=== PATIENT | female | born 1950 ===

== ENCOUNTER 2017-03-20 06:06 | Emergency (ER) | payer OTHER ==
[2017-03-20 06:07] VITALS: BMI 19.1
--- NOTE | 2017-03-20 06:15 | C.PDOC ---
History Of Present Illness Patient presents to the ED for evaluation of itching which began around 2 days ago. Patient reports a diffuse urticarial rash mostly concentrated around her neck and arms. She denies fever, chills, shortness of breath, cough, throat swelling sensation, nausea, vomiting. Time Seen by Provider: 03/20/17 06:14 Chief Complaint (Nursing): Allergic Reaction History Per: Patient History/Exam Limitations: no limitations Onset/Duration Of Symptoms: Days (2) Current Symptoms Are (Timing): Still Present Possible Cause: Unknown Associated Symptoms: Skin Rash, Itching. denies: Trouble Swallowing Home/EMS Treatment: None Severity: Mild Pain Scale Rating Of: 3 Recent travel outside of the [place]: No Additional History Per: Patient Past Medical History Reviewed: Historical Data, Nursing Documentation, Vital Signs Vital Signs: Last Vital Signs Temp 97.9 F 03/20/17 06:13 Pulse 66 03/20/17 06:13 Resp 18 03/20/17 06:13 BP 147/89 03/20/17 06:13 Pulse Ox 100 03/20/17 06:35 - Medical History PMH: No Chronic Diseases Surgical History: No Surg Hx Family History: States: Unknown Family Hx - Social History Hx Tobacco Use: No Hx Alcohol Use: No Hx Substance Use: No - Immunization History Hx Tetanus Toxoid Vaccination: Yes Hx Influenza Vaccination: Yes Hx Pneumococcal Vaccination: Yes Review Of Systems ENT: Negative for: Mouth Swelling, Throat Swelling Cardiovascular: Negative for: Chest Pain, Palpitations Respiratory: Negative for: Cough, Shortness of Breath, Wheezing Gastrointestinal: Negative for: Nausea, Vomiting Skin: Positive for: Rash (diffuse, urticarial around neck and arms ). Negative for: Lesions, Jaundice, Bruising Neurological: Negative for: Weakness, Numbness Physical Exam - Physical Exam Appears: Non-toxic, No Acute Distress Skin: Warm, Dry, Rash (urticarial around lateral neck and bilateral upper extremities. unknown etiology) Head: Normacephalic Eye(s): bilateral: Normal Inspection Oral Mucosa: Moist Tongue: No Swelling Lips: No Swelling Throat: No Erythema, No Exudate, No Drooling, Other (+clear oropharynx, tolerating own secretions ) Neck: Supple Chest: Symmetrical, No Deformity, No Tenderness Cardiovascular: Rhythm Regular, No Murmur Respiratory: No Rales, No Rhonchi, No Wheezing, Other (+speaking complete sentences) Gastrointestinal/Abdominal: Soft, No Tenderness Extremity: Normal ROM, Capillary Refill (less than 2 seconds ) Extremity: Bilateral: Atraumatic Neurological/Psych: Oriented x3 Gait: Steady ED Course And Treatment O2 Sat by Pulse Oximetry: 100 (on RA) Pulse Ox Interpretation: Normal Progress Note: Patient received Benadryl IV, Pepcid IV, Solu-medrol IV, and IVF. Disposition Counseled Patient/Family Regarding: Studies Performed, Diagnosis - Disposition Referrals: Non [facility] Provider, [Primary Care Provider] - Disposition Time: 06:15 Condition: UNKNOWN Forms: [employer] (Spanish) - Clinical Impression Clinical Impression: Allergic urticaria - Scribe Statement The provider has reviewed the documentation as recorded by the Scribe (Deb Alvarez) Provider Attestation: All medical record entries made by the Scribe were at my direction and personally dictated by me. I have reviewed the chart and agree that the record accurately reflects my personal performance of the history, physical exam, medical decision making, and the department course for this patient. I have also personally directed, reviewed, and agree with the discharge instructions and disposition.
[2017-03-20] MEDS ORDERED: DiphenhydrAMINE 50 mg/ml Inj IVP STA (06:18)
[2017-03-20] MEDS ORDERED: Sodium Chloride 0.9% 1,000 ML IV ONE (06:18)
[2017-03-20 06:19] VITALS: RESP 18; O2SAT 100
[2017-03-20] MEDS ORDERED: Sodium Chloride 0.9% 1,000 ML ONE (06:29)
[2017-03-20] MEDS ORDERED: DiphenhydrAMINE 50 mg/ml Inj ONE (06:29)
[2017-03-20 07:38] VITALS: TEMP 97.7
[2017-03-20 07:52] VITALS: BP 140/90; PULSE 69
== END 2017-03-20 07:52 | disposition home or self-care (01) ==
LOC: C.ER 06:06 → SUPCPDRO 06:06 → C.ER 07:52
DX: L50.0 Allergic urticaria (principal)
CPT/HCPCS: 96374; 96375; 99284; J1200; J2930; J7040

== ENCOUNTER 2017-03-29 05:55 | Emergency (ER) | payer OTHER ==
[2017-03-29 05:56] VITALS: BMI 19.1
[2017-03-29 06:10] VITALS: RESP 18
--- NOTE | 2017-03-29 07:19 | C.PDOC ---
History Of Present Illness 66 year old female presents to ED with complaints of itchy rash to body. She reports she was seen here last week and treated, the rash had improved and then returned yesterday. She states noticed after she had chocolate ice cream, but has had it before. Denies any SOB, throat swelling or difficulty swallowing. Skin: maculopapular rash to extremities and upper chest wall, no facial involvement Time Seen by Provider: 03/29/17 07:08 Chief Complaint (Nursing): Allergic Reaction History Per: Patient History/Exam Limitations: no limitations Onset/Duration Of Symptoms: Days Current Symptoms Are (Timing): Still Present Past Medical History Reviewed: Historical Data, Nursing Documentation, Vital Signs Vital Signs: Last Vital Signs Temp 97.3 F L 03/29/17 07:46 Pulse 58 L 03/29/17 07:46 Resp 18 03/29/17 07:46 BP 145/90 03/29/17 07:46 Pulse Ox 99 03/29/17 07:48 Family History: States: No Known Family Hx - Social History Hx Tobacco Use: No Hx Alcohol Use: No Hx Substance Use: No - Immunization History Hx Tetanus Toxoid Vaccination: Yes Hx Influenza Vaccination: Yes Hx Pneumococcal Vaccination: Yes Review Of Systems Except As Marked, All Systems Reviewed And Found Negative. Constitutional: Negative for: Fever ENT: Negative for: Throat Swelling Skin: Positive for: Rash (Itchy rash to body ) Physical Exam - Physical Exam Appears: Non-toxic, No Acute Distress Skin: Warm, Dry, Rash (Maculopapular rash to extremities and upper chest wall. No facial involvement. ) Head: Atraumatic, Normacephalic Eye(s): bilateral: Normal Inspection, PERRL, EOMI Nose: Normal Oral Mucosa: Moist Tongue: Normal Appearing, No Swelling Lips: Normal Appearing, No Swelling Throat: Normal, No Erythema, No Exudate, No Drooling Neck: Normal ROM Chest: Symmetrical, No Tenderness Cardiovascular: Rhythm Regular, No Murmur Respiratory: Normal Breath Sounds, No Rales, No Rhonchi, No Wheezing Extremity: Normal ROM, No Swelling Neurological/Psych: Oriented x3, Normal Speech Gait: Steady ED Course And Treatment O2 Sat by Pulse Oximetry: 99 (RA) Pulse Ox Interpretation: Normal Medical Decision Making Medical Decision Makin66 year old female with urticarial rash. Prior record reviewed similar presentation, treated with IV Solumedrol pepcid and benadryl. Today patient appears in no acute distress. Rash is scattered to extremities and upper chest wall. No intraoral swelling, wheezing or stridor. Will treat with Benadryl and Pepcid. Patient is asking for blood work. I explained to patient lab analysis is not indicated nor will help in clinical diagnosis and treatment. Will give Rx and advise follow up in the clinic. Disposition Counseled Patient/Family Regarding: Need For Followup, Rx Given - Disposition Referrals: [facility] [Outside] [facility] [Outside] [place] [facility] [Outside] Disposition: HOME/ ROUTINE Disposition Time: 07:19 Condition: STABLE Additional Instructions: Por favor, tome Benadryl 25-50mg cada 6 horas para picazn y erupcin cutnea Aplique crema en las reas de erupcin cutnea Seguimiento en la clnica para mg evaluacin posterior Prescriptions: Hydrocortisone 1% Cream [Cortizone 1% Cream] 1 cre TP BID #1 tube Instructions: Urticaria (ED) Forms: [employer] (Zambian) Print Language: MALTESE - POA Present On Arrival: None - Clinical Impression Clinical Impression: Urticaria - PA / [employer] / Resident Statement MD/DO has reviewed & agrees with the documentation as recorded. - Scribe Statement The provider has reviewed the documentation as recorded by the Scribe Camelia Alston All medical record entries made by the Scribe were at my direction and personally dictated by me. I have reviewed the chart and agree that the record accurately reflects my personal performance of the history, physical exam, medical decision making, and the department course for this patient. I have also personally directed, reviewed, and agree with the discharge instructions and disposition.
[2017-03-29 07:47] VITALS: BP 145/90; PULSE 58; TEMP 97.3
[2017-03-29 07:48] VITALS: O2SAT 99
== END 2017-03-29 08:09 | disposition home or self-care (01) ==
LOC: C.ER 05:55
DX: L50.9 Urticaria, unspecified (principal)